=== PATIENT | female | born 1995 | race American Indian/Alaskan Native ===

== ENCOUNTER 2018-09-02 20:15 | Outpatient (CLI) | payer MEDICAID ==
[2018-09-02] MEDS ORDERED: LACTATED RINGERS 500 ML IV ONE (21:51)
[2018-09-02] MEDS ORDERED: LACTATED RINGERS 1,000 ML IV SCH (22:00)
--- NOTE | 2018-09-03 04:39 | Ultrasound Report ---
PROCEDURE: US OB BPP WO NON-STRESS HISTORY: well-being FINDINGS: Biophysical profile was performed. Biophysical profile was 8 of 8. cardiac activity is present at 129 bpm. IMPRESSION: Biophysical profile 8 of 8 This document is electronically signed by Mohamud Ramirez MD., September 03 2018 04:37:14 AM ET
--- NOTE | 2018-09-03 04:43 | Ultrasound Report ---
PROCEDURE: US OB LIMITED HISTORY: R/O Abruption FINDINGS: Real-time ultrasound of the pelvis was performed and demonstrates a single intrauterine ges tation in cephalic lie. There is an anterior grade 1 placenta. There is no evidence of placental abruption. cardiac activity is present at 129 bpm. IMPRESSION: No evidence of placental abruption This document is electronically signed by Mohamud Ramirez MD., September 03 2018 04:41:32 AM ET
== END 2018-09-03 03:06 | disposition home or self-care (01) ==
LOC: TRG 20:15
PROVIDERS: ATTEND Obstetrics & Gynecology
DX: O46.93 Antepartum hemorrhage, unspecified, third trimester (principal); O36.8130 Decreased fetal movements, third trimester, not applicable or unspecified; Z87.891 Personal history of nicotine dependence; Z3A.30 30 weeks gestation of pregnancy
CPT/HCPCS: 59025; 76815; 76819; 96360; 96361; J7120

== ENCOUNTER 2018-10-10 00:02 | Outpatient (CLI) | payer MEDICAID ==
[2018-10-10 00:16] VITALS: BP 133/78
[2018-10-10] MEDS ORDERED: LACTATED RINGERS 500 ML IV ONE (00:30)
== END 2018-10-10 01:25 | disposition home or self-care (01) ==
LOC: TRG 00:02
PROVIDERS: ATTEND Obstetrics & Gynecology
DX: O47.03 False labor before 37 completed weeks of gestation, third trimester (principal); Z3A.35 35 weeks gestation of pregnancy
CPT/HCPCS: 59025

== ENCOUNTER 2018-11-01 11:06 | Outpatient (CLI) | payer MEDICAID ==
[2018-11-01 11:32] VITALS: BP 114/66
== END 2018-11-01 12:00 | disposition home or self-care (01) ==
LOC: TRG 11:06
PROVIDERS: ATTEND Obstetrics & Gynecology
DX: O47.1 False labor at or after 37 completed weeks of gestation (principal); Z3A.39 39 weeks gestation of pregnancy
CPT/HCPCS: 59025

== ENCOUNTER 2018-11-01 21:45 | Inpatient (IN) | payer MEDICAID ==
[2018-11-01] MEDS ORDERED: TYLENOL #3 PO PRN (21:59)
[2018-11-01] MEDS ORDERED: BRETHINE SUB-Q PRN (22:55)
[2018-11-01] MEDS ORDERED: STADOL IV PRN (22:55)
[2018-11-01] MEDS ORDERED: NUBAIN IV PRN (22:55)
[2018-11-01] MEDS ORDERED: MINERAL OIL PO PRN (22:55)
[2018-11-01] MEDS ORDERED: BRETHINE IVP PRN (22:55)
[2018-11-01] MEDS ORDERED: XYLOCAINE 2% INFILTRATI ONE (22:55)
[2018-11-01] MEDS ORDERED: NARCAN 0.4 MG/1 ML IV PRN (22:55)
[2018-11-01] MEDS ORDERED: PHENERGAN PO PRN (22:55)
[2018-11-01] MEDS ORDERED: METHERGINE IM PRN (22:59)
[2018-11-01] MEDS ORDERED: CYTOTEC PR PRN (22:59)
[2018-11-01] MEDS ORDERED: PITOCin/NS 20 UNIT/1000ML DRIP 20 UNITS/1,000 ML BAG IV SCH (23:00)
[2018-11-01] MEDS ORDERED: PITOCin/NS 30 UNIT/500ML 30 UNITS/500 ML BAG IV SCH (23:00)
--- NOTE | 2018-11-01 23:06 | History and Physical Report ---
History of Present Illness Date of examination: 11/01/18 Date of admission: 11/01/18 22:39 Chief complaint: Contractions History of present illness: Pt is a 23 yo at 39.1 wks EGA who presents with contractions q2-3 minutes. She reports occasional leaking fluid since intercourse this morning. She reports positive movement and denies rashel vaginal bleeding. She has received care with [facility]. Her has been complicated by UTI, treated. She is GBS negative. Past History Past Medical History: no pertinent history Past Surgical History: no surgical history [employer] ATTENDANT History: abnormal PAP smear Social history: no significant social history - Obstetrical History Expected Date of Delivery: 11/07/18 Actual Gestation: 39 Week(s) 1 Day(s) : 3 Para: 0 Hx # Term Pregnancies: 0 Induced : 2 Number of Living Children: 0 Medications and Allergies Allergies Allergy/AdvReac Type Severity Reaction Status Date / Time No Known Allergies Allergy Verified 11/01/18 11:08 Home Medications Medication Instructions Recorded Confirmed Last Taken Type No Known Home Medications [No 02/23/14 11/01/18 Unknown History Reported Home Medications] Active Meds: Active Medications Acetaminophen/Codeine Phosphate (Tylenol #3) 1 tab PO Q4H PRN PRN Reason: Pain, Moderate (4-6) Last Admin: 11/01/18 22:09 Dose: 1 tab Documented by: Butorphanol Tartrate (Stadol) 2 mg IV Q2H PRN PRN Reason: Pain , Severe (7-10) Ephedrine Sulfate (Ephedrine Sulfate) 10 mg IV Q2M PRN PRN Reason: Hypotension Fentanyl (Sublimaze) 100 mcg IV Q2H PRN PRN Reason: Labor Pain Oxytocin/Sodium Chloride (Pitocin/Ns 20 Unit/1000ml Drip) 20 units in 1,000 mls @ 125 mls/hr IV DIRECT MARIANNE Oxytocin/Sodium Chloride (Pitocin/Ns 30 Unit/500ml) 30 units in 500 mls @ 1 mls/hr IV TITR MARIANNE; Protocol Lactated Ringer's (Lactated Ringers) 1,000 mls @ 125 mls/hr IV DIRECT MARIANNE Lidocaine (Xylocaine 2%) 20 ml INFILTRATI ONCE ONE Stop: 11/01/18 22:56 Methylergonovine Maleate (Methergine) 0.2 mg IM ONCE PRN PRN Reason: Uterine Bleeding Mineral Oil (Mineral Oil) 30 ml PO QHS PRN PRN Reason: Constipation Misoprostol (Cytotec) 800 mcg CO ONCE PRN PRN Reason: Uterine Bleeding Nalbuphine HCl (Nubain) 10 mg IV Q2H PRN PRN Reason: Pain, Moderate (4-6) Naloxone HCl (Narcan 0.4 Mg/1 Ml) 0.1 mg IV Q2MIN PRN PRN Reason: Res Rate </= 8 or 02 SAT < 92% Promethazine HCl (Phenergan) 25 mg PO Q6H PRN PRN Reason: Nausea And Vomiting Terbutaline Sulfate (Brethine) 0.25 mg SUB-Q ONCE PRN PRN Reason: Hyperstimulation/Hypertonicity Terbutaline Sulfate (Brethine) 0.25 mg IVP ONCE PRN PRN Reason: Hyperstimulation/Hypertonicity Review of Systems All systems: negative Cardiovascular: no chest pain Respiratory: no shortness of breath Genitourinary: vaginal discharge, contractions - Physical Exam Breasts: Positive: deferred Cardiovascular: Regular rate, Normal S1, Normal S2, No murmurs Lungs: Positive: Clear to auscultation, Normal air movement Abdomen: Positive: soft Genitourinary (Female): Positive: normal external genitalia Vagina: Positive: normal moisture Uterus: Positive: enlarged (gravid), normal contour, other (Nitrazine negative, no fluid noted in vagina or bed) Anus/Rectum: Positive: normal perianal skin Extremities: Positive: normal - Obstetrical FHR: auscultation normal, category 1 Uterine Contraction Monitor Mode: External Cervical Dilatation: 5 Cervical Effacement Percentage: 80 station: -2 Uterine Contraction Frequency (min): 1-4 Uterine Contraction Duration: 60 seconds Uterine Contraction Pattern: Regular Uterine Tone Measurement Phase: Contraction Uterine Contraction Intensity: Strong/Firm Results All other labs normal. Assessment and Plan 23 yo at 39.1 wks EGA in active labor GBS negative, membranes intact Admit to L&D Pain relief as requested Expectant management, anticipate
[2018-11-01] MEDS: LACTATED RINGERS 1,000 ML IV SCH (23:22)
[2018-11-01] MEDS: SUBLIMAZE IV PRN (23:22)
[2018-11-01 23:39] LABS: Hematocrit 34.2 % (30.3-42.9); Hemoglobin 11.5 gm/dl (10.1-14.3); Mean Corpuscular HGB Conc 34 % (30-34); Mean Corpuscular Volume 82 fl (79-97); Platelet Count 249 K/mm3 (140-440); Red Blood Count 4.17 M/mm3 (3.65-5.03)
[2018-11-02] MEDS: SUBLIMAZE IV PRN (01:23)
--- NOTE | 2018-11-02 02:01 | Progress Note ---
Assessment and Plan 23 yo at 39.2 wks EGA in active labor GBS negative, membranes intact Initiate epidural OP presentation, encourage frequent position changes Expectant management, anticipate Subjective - Subjective Date of service: 11/02/18 Principal diagnosis: Active labor Interval history: Pt is sitting up in bed, continues to have regular contractions. She is more uncomfortable and requests an epidural. Patient reports: contractions, no loss of fluid Objective - Vital Signs Vital Signs: Vital Signs - 12hr 11/02/18 11/02/18 11/02/18 00:12 01:34 01:39 Pulse Rate 111 H 85 85 Blood Pressure 110/57 O2 Sat by Pulse 97 97 Oximetry 11/02/18 11/02/18 01:44 01:48 Pulse Rate 96 H 92 H Blood Pressure O2 Sat by Pulse 98 97 Oximetry - Exam FHR: category 1 Uterine Contraction Monitor Mode: External Cervical Dilatation: 5 Cervical Effacement Percentage: 80 Uterine Contraction Frequency (min): 1-3 Uterine Contraction Duration: 60 sec Uterine Contraction Pattern: Regular (some coupling noted) - Labs Labs: Laboratory Results - last 24 hr 11/01/18 11/01/18 22:51 22:51 WBC 9.3 RBC 4.17 Hgb 11.5 Hct 34.2 MCV 82 MCH 28 MCHC 34 RDW 15.0 Plt Count 249 Blood Type O POSITIVE Antibody Screen Negative
[2018-11-02] MEDS ORDERED: NARCAN 2 MG/2 ML IV PRN (02:33)
--- NOTE | 2018-11-02 02:35 | Anesthesia Consultation ---
Anesthesia Consult and Med Hx Date of service: 11/02/18 - Airway Anesthetic Teeth Evaluation: Good ROM Head & Neck: Adequate Mental/Hyoid Distance: Adequate Mallampati Class: Class II Intubation Access Assessment: Probably Good - Pulmonary Exam CTA: Yes - Cardiac Exam Cardiac Exam: RRR - Pre-Operative Health Status ASA Pre-Surgery Classification: ASA2 Proposed Anesthetic Plan: Epidural - Pulmonary Hx Smoking: No Hx Asthma: No Hx Respiratory Symptoms: No SOB: No COPD: No Home Oxygen Therapy: No Hx Pneumonia: No Hx Sleep Apnea: No - Cardiovascular System Hx Hypertension: No Hx Coronary Artery Disease: No Hx Heart Attack/AMI: No Hx Angina: No Hx Percutaneous Transluminal Coronary Angioplasty (PTCA): No Hx Cardia Arrhythmia: No Hx Pacemaker: No Hx Internal Defibrillator: No Hx Valvular Heart Disease: No Hx Heart Murmur: No Hx Peripheral Vascular Disease: No - Central Nervous System Hx Neuromuscular Disorder: No Hx Seizures: No CVA: No Hx Back Pain: No Hx Psychiatric Problems: No - Gastrointestinal Hx Ulcer: No Hx Gastroesophageal Reflux Disease: Yes - Endocrine Hx Renal Disease: No Hx End Stage Renal Disease: No Hx Cirrhosis: No Hx Liver Disease: No Hx Insulin Dependent Diabetes: No Hx Non-Insulin Dependent Diabetes: No Hx Thyroid Disease: No Hx Hypothyroidism: No Hx Hyperthyroidism: No - Hematic Hx Anemia: No Hx Sickle Cell Disease: No - Other Systems Hx Alcohol Use: No Hx Substance Use: No Hx Cancer: No Hx Obesity: Yes (BMI 37)
[2018-11-02] MEDS ORDERED: fentaNYL-BUPIV 2 MCG/ML-0.125% 200 MCG/100 ML BAG EPIDURAL SCH (03:00)
[2018-11-02] MEDS: LACTATED RINGERS 1,000 ML IV SCH ×2 (03:11→06:19)
--- NOTE | 2018-11-02 05:43 | Progress Note ---
Assessment and Plan 23 yo at 39.2 wks EGA in active labor GBS negative, membranes intact OP presentation, encourage frequent position changes Expectant management, anticipate Subjective - Subjective Date of service: 11/02/18 Principal diagnosis: Active labor Interval history: Pt continues to have regular contractions. She is comfortable with her epidural. Patient reports: loss of fluid, no new complaints Objective - Vital Signs Vital Signs: Vital Signs - 12hr 11/02/18 11/02/18 11/02/18 00:12 01:34 01:39 Pulse Rate 111 H 85 85 Respiratory Rate Blood Pressure 110/57 O2 Sat by Pulse 97 97 Oximetry 11/02/18 11/02/18 11/02/18 01:44 01:48 01:54 Pulse Rate 96 H 92 H 104 H Respiratory Rate Blood Pressure O2 Sat by Pulse 98 97 97 Oximetry 11/02/18 11/02/18 11/02/18 01:59 02:01 02:04 Pulse Rate 94 H 115 H 100 H Respiratory Rate Blood Pressure O2 Sat by Pulse 98 93 98 Oximetry 11/02/18 11/02/18 11/02/18 02:09 02:14 02:18 Pulse Rate 95 H 118 H 95 H Respiratory Rate Blood Pressure 135/82 O2 Sat by Pulse 97 99 Oximetry 11/02/18 11/02/18 11/02/18 02:19 02:20 02:22 Pulse Rate 98 H 95 H 92 H Respiratory Rate Blood Pressure 137/80 141/82 O2 Sat by Pulse 98 Oximetry 11/02/18 11/02/18 11/02/18 02:24 02:28 02:29 Pulse Rate 85 86 81 Respiratory Rate Blood Pressure 165/69 116/59 O2 Sat by Pulse 97 99 Oximetry 11/02/18 11/02/18 11/02/18 02:34 02:35 02:39 Pulse Rate 88 89 76 Respiratory Rate Blood Pressure 118/67 O2 Sat by Pulse 100 100 Oximetry 11/02/18 11/02/18 11/02/18 02:44 02:49 02:51 Pulse Rate 91 H 80 83 Respiratory Rate Blood Pressure 138/81 O2 Sat by Pulse 90 100 Oximetry 11/02/18 11/02/18 11/02/18 02:53 02:59 03:04 Pulse Rate 77 78 80 Respiratory Rate Blood Pressure O2 Sat by Pulse 100 100 100 Oximetry 11/02/18 11/02/18 11/02/18 03:07 03:09 03:14 Pulse Rate 90 76 80 Respiratory Rate Blood Pressure 140/80 O2 Sat by Pulse 100 100 Oximetry 11/02/18 11/02/18 11/02/18 03:19 03:23 03:24 Pulse Rate 85 85 83 Respiratory Rate Blood Pressure 132/84 O2 Sat by Pulse 100 100 Oximetry 11/02/18 11/02/18 11/02/18 03:27 03:28 03:34 Pulse Rate 83 86 Respiratory 15 Rate Blood Pressure 140/80 O2 Sat by Pulse 100 100 Oximetry 11/02/18 11/02/18 11/02/18 03:37 03:39 03:43 Pulse Rate 90 84 87 Respiratory Rate Blood Pressure 131/75 O2 Sat by Pulse 100 100 Oximetry 11/02/18 11/02/18 11/02/18 03:49 03:50 03:54 Pulse Rate 85 91 H 86 Respiratory Rate Blood Pressure 126/74 O2 Sat by Pulse 99 99 Oximetry 11/02/18 11/02/18 11/02/18 03:58 04:03 04:05 Pulse Rate 90 85 83 Respiratory Rate Blood Pressure 124/71 O2 Sat by Pulse 99 99 Oximetry 11/02/18 11/02/18 11/02/18 04:09 04:14 04:18 Pulse Rate 84 90 97 H Respiratory Rate Blood Pressure O2 Sat by Pulse 98 100 100 Oximetry 11/02/18 11/02/18 11/02/18 04:21 04:23 04:28 Pulse Rate 93 H 97 H 89 Respiratory Rate Blood Pressure 122/71 O2 Sat by Pulse 100 100 Oximetry 11/02/18 11/02/18 11/02/18 04:33 04:37 04:39 Pulse Rate 90 86 89 Respiratory Rate Blood Pressure 123/68 O2 Sat by Pulse 100 100 Oximetry 11/02/18 11/02/18 11/02/18 04:43 04:48 04:50 Pulse Rate 94 H 91 H 91 H Respiratory Rate Blood Pressure 117/67 O2 Sat by Pulse 100 100 Oximetry 11/02/18 11/02/18 11/02/18 04:53 04:58 05:03 Pulse Rate 98 H 94 H 93 H Respiratory Rate Blood Pressure O2 Sat by Pulse 100 100 100 Oximetry 11/02/18 11/02/18 11/02/18 05:07 05:08 05:13 Pulse Rate 96 H 95 H 96 H Respiratory Rate Blood Pressure 115/66 O2 Sat by Pulse 99 100 Oximetry 11/02/18 11/02/18 11/02/18 05:18 05:20 05:23 Pulse Rate 102 H 96 H 102 H Respiratory Rate Blood Pressure 116/67 O2 Sat by Pulse 100 99 Oximetry 11/02/18 11/02/18 11/02/18 05:28 05:33 05:37 Pulse Rate 98 H 110 H 108 H Respiratory Rate Blood Pressure 137/88 O2 Sat by Pulse 99 99 Oximetry - Exam FHR: category 1 Uterine Contraction Monitor Mode: External Cervical Dilatation: 9 Cervical Effacement Percentage: 100 station: -1, BBOW Uterine Contraction Frequency (min): 1-3 Uterine Contraction Duration: 60 Extremities: normal - Labs Labs: Laboratory Results - last 24 hr 11/01/18 11/01/18 22:51 22:51 WBC 9.3 RBC 4.17 Hgb 11.5 Hct 34.2 MCV 82 MCH 28 MCHC 34 RDW 15.0 Plt Count 249 Blood Type O POSITIVE Antibody Screen Negative
--- NOTE | 2018-11-02 06:21 | Progress Note ---
Assessment and Plan 23 yo at 39.2 wks EGA in active labor GBS negative, membranes intact Expectant management, anticipate Subjective - Subjective Date of service: 11/02/18 Principal diagnosis: Active labor Interval history: Pt continues to have regular contractions. She is comfortable with her epidural, feeling occasional rectal pressure. Patient reports: no loss of fluid Objective - Vital Signs Vital Signs: Vital Signs - 12hr 11/02/18 11/02/18 11/02/18 00:12 01:34 01:39 Temperature Pulse Rate 111 H 85 85 Respiratory Rate Blood Pressure 110/57 Blood Pressure [Left] O2 Sat by Pulse 97 97 Oximetry 11/02/18 11/02/18 11/02/18 01:44 01:48 01:54 Temperature Pulse Rate 96 H 92 H 104 H Respiratory Rate Blood Pressure Blood Pressure [Left] O2 Sat by Pulse 98 97 97 Oximetry 11/02/18 11/02/18 11/02/18 01:59 02:01 02:04 Temperature Pulse Rate 94 H 115 H 100 H Respiratory Rate Blood Pressure Blood Pressure [Left] O2 Sat by Pulse 98 93 98 Oximetry 11/02/18 11/02/18 11/02/18 02:09 02:14 02:18 Temperature Pulse Rate 95 H 118 H 95 H Respiratory Rate Blood Pressure 135/82 Blood Pressure [Left] O2 Sat by Pulse 97 99 Oximetry 11/02/18 11/02/18 11/02/18 02:19 02:20 02:22 Temperature Pulse Rate 98 H 95 H 92 H Respiratory Rate Blood Pressure 137/80 141/82 Blood Pressure [Left] O2 Sat by Pulse 98 Oximetry 11/02/18 11/02/18 11/02/18 02:24 02:28 02:29 Temperature Pulse Rate 85 86 81 Respiratory Rate Blood Pressure 165/69 116/59 Blood Pressure [Left] O2 Sat by Pulse 97 99 Oximetry 11/02/18 11/02/18 11/02/18 02:34 02:35 02:39 Temperature Pulse Rate 88 89 76 Respiratory Rate Blood Pressure 118/67 Blood Pressure [Left] O2 Sat by Pulse 100 100 Oximetry 11/02/18 11/02/18 11/02/18 02:44 02:49 02:51 Temperature Pulse Rate 91 H 80 83 Respiratory Rate Blood Pressure 138/81 Blood Pressure [Left] O2 Sat by Pulse 90 100 Oximetry 11/02/18 11/02/18 11/02/18 02:53 02:59 03:04 Temperature Pulse Rate 77 78 80 Respiratory Rate Blood Pressure Blood Pressure [Left] O2 Sat by Pulse 100 100 100 Oximetry 11/02/18 11/02/18 11/02/18 03:07 03:09 03:14 Temperature Pulse Rate 90 76 80 Respiratory Rate Blood Pressure 140/80 Blood Pressure [Left] O2 Sat by Pulse 100 100 Oximetry 11/02/18 11/02/18 11/02/18 03:19 03:23 03:24 Temperature Pulse Rate 85 85 83 Respiratory Rate Blood Pressure 132/84 Blood Pressure [Left] O2 Sat by Pulse 100 100 Oximetry 11/02/18 11/02/18 11/02/18 03:27 03:28 03:34 Temperature Pulse Rate 83 86 Respiratory 15 Rate Blood Pressure 140/80 Blood Pressure [Left] O2 Sat by Pulse 100 100 Oximetry 11/02/18 11/02/18 11/02/18 03:37 03:39 03:43 Temperature Pulse Rate 90 84 87 Respiratory Rate Blood Pressure 131/75 Blood Pressure [Left] O2 Sat by Pulse 100 100 Oximetry 11/02/18 11/02/18 11/02/18 03:49 03:50 03:54 Temperature Pulse Rate 85 91 H 86 Respiratory Rate Blood Pressure 126/74 Blood Pressure [Left] O2 Sat by Pulse 99 99 Oximetry 11/02/18 11/02/18 11/02/18 03:58 04:03 04:05 Temperature Pulse Rate 90 85 83 Respiratory Rate Blood Pressure 124/71 Blood Pressure [Left] O2 Sat by Pulse 99 99 Oximetry 11/02/18 11/02/18 11/02/18 04:09 04:14 04:18 Temperature Pulse Rate 84 90 97 H Respiratory Rate Blood Pressure Blood Pressure [Left] O2 Sat by Pulse 98 100 100 Oximetry 11/02/18 11/02/18 11/02/18 04:21 04:23 04:28 Temperature Pulse Rate 93 H 97 H 89 Respiratory Rate Blood Pressure 122/71 Blood Pressure [Left] O2 Sat by Pulse 100 100 Oximetry 11/02/18 11/02/18 11/02/18 04:33 04:37 04:39 Temperature Pulse Rate 90 86 89 Respiratory Rate Blood Pressure 123/68 Blood Pressure [Left] O2 Sat by Pulse 100 100 Oximetry 11/02/18 11/02/18 11/02/18 04:43 04:48 04:50 Temperature Pulse Rate 94 H 91 H 91 H Respiratory Rate Blood Pressure 117/67 Blood Pressure [Left] O2 Sat by Pulse 100 100 Oximetry 11/02/18 11/02/18 11/02/18 04:53 04:58 05:03 Temperature Pulse Rate 98 H 94 H 93 H Respiratory Rate Blood Pressure Blood Pressure [Left] O2 Sat by Pulse 100 100 100 Oximetry 11/02/18 11/02/18 11/02/18 05:07 05:08 05:11 Temperature Pulse Rate 96 H 95 H Respiratory 16 Rate Blood Pressure 115/66 128/67 Blood Pressure [Left] O2 Sat by Pulse 99 Oximetry 11/02/18 11/02/18 11/02/18 05:13 05:18 05:20 Temperature Pulse Rate 96 H 102 H 96 H Respiratory Rate Blood Pressure 116/67 Blood Pressure [Left] O2 Sat by Pulse 100 100 Oximetry 11/02/18 11/02/18 11/02/18 05:23 05:28 05:33 Temperature Pulse Rate 102 H 98 H 110 H Respiratory Rate Blood Pressure Blood Pressure [Left] O2 Sat by Pulse 99 99 99 Oximetry 11/02/18 11/02/18 11/02/18 05:37 05:38 05:39 Temperature Pulse Rate 108 H 101 H 100 H Respiratory Rate Blood Pressure 137/88 128/67 Blood Pressure [Left] O2 Sat by Pulse 100 Oximetry 11/02/18 11/02/18 11/02/18 05:43 05:48 05:51 Temperature Pulse Rate 102 H 102 H 104 H Respiratory Rate Blood Pressure 119/64 Blood Pressure [Left] O2 Sat by Pulse 100 100 Oximetry 11/02/18 11/02/18 11/02/18 05:53 05:56 05:58 Temperature 97.7 F Pulse Rate 106 H 106 H 113 H Respiratory 16 Rate Blood Pressure Blood Pressure 119/64 [Left] O2 Sat by Pulse 100 100 100 Oximetry 11/02/18 11/02/18 11/02/18 06:03 06:07 06:08 Temperature Pulse Rate 107 H 108 H 110 H Respiratory Rate Blood Pressure 120/71 Blood Pressure [Left] O2 Sat by Pulse 100 99 Oximetry 11/02/18 11/02/18 06:13 06:18 Temperature Pulse Rate 104 H 104 H Respiratory Rate Blood Pressure Blood Pressure [Left] O2 Sat by Pulse 99 100 Oximetry - Exam FHR: category 1 Uterine Contraction Monitor Mode: External Cervical Dilatation: 9.5 Cervical Effacement Percentage: 100 station: 0 Uterine Contraction Frequency (min): 2-4 Uterine Contraction Duration: 60 seconds Uterine Contraction Pattern: Regular - Labs Labs: Laboratory Results - last 24 hr 11/01/18 11/01/18 22:51 22:51 WBC 9.3 RBC 4.17 Hgb 11.5 Hct 34.2 MCV 82 MCH 28 MCHC 34 RDW 15.0 Plt Count 249 Blood Type O POSITIVE Antibody Screen Negative
[2018-11-02] MEDS ORDERED: XYLOCAINE 2% INFILTRATI ONE (07:14)
--- NOTE | 2018-11-02 08:41 | Procedure Note ---
OB Delivery Note - Delivery Date of Delivery: 11/02/18 Surgeon: MAISHA MICHAEL (CN) Estimated blood loss: 200cc - Vaginal Delivery presentation: vertex Delivery position: OA Intrapartum events: none Delivery induction: none Delivery augmentation: rupture of membranes Delivery monitor: external FHT, external uterine Route of delivery: Delivery placenta: spontaneous, other (accessory lobe) Delivery cord: 3 umbilical vessels Episiotomy: none Delivery laceration: none Anesthesia: epidural Delivery comments: Excellent maternal effort resulted in of viable male infant at 0800. Head restituted LOT after maternal leg extension and flexion. Shoulders followed with gentle guidance. to maternal abdomen, vigorous. Cord clamped and cut upon cessation of cord pulsation. Placenta delivered with maternal pushing at 0819, trailing membranes with vessel. EBL 200, no lacerations noted. - Infant A at 1 minute: 8 at 5 minutes: 9 Gender: Male
[2018-11-02] MEDS ORDERED: LANSINOH TP PRN (09:00)
[2018-11-02] MEDS ORDERED: PHENERGAN PR PRN (09:00)
[2018-11-02] MEDS ORDERED: TUCKS PAD TP PRN (09:00)
[2018-11-02] MEDS ORDERED: BENADRYL PO PRN (09:00)
[2018-11-02] MEDS ORDERED: PHENERGAN PO PRN (09:00)
[2018-11-02] MEDS ORDERED: SODIUM CHLORIDE FLUSH SYRINGE 10 ML IV PRN (09:00)
[2018-11-02] MEDS ORDERED: ZOFRAN IV PRN (09:30)
[2018-11-02] MEDS ORDERED: DULCOLAX PR PRN (10:00)
[2018-11-02] MEDS: IBUPROFEN PO SCH ×2 (11:27→17:55)
[2018-11-02] MEDS: FEOSOL PO SCH ×2 (11:28→21:55)
[2018-11-02] MEDS: COLACE PO SCH ×2 (11:28→21:55)
[2018-11-02] MEDS: TYLENOL PO PRN (15:28)
[2018-11-02 20:24] LABS: Hemoglobin 9.5 gm/dl (10.1-14.3)
[2018-11-02] MEDS ORDERED: MILK OF MAGNESIA PO PRN (22:00)
[2018-11-03] MEDS: IBUPROFEN PO SCH ×4 (00:14→18:20)
--- NOTE | 2018-11-03 08:23 | Progress Note ---
Assessment and Plan A/P PPD 1 s/p routine PP orders anemia-on iron Subjective - Subjective Date of service: 11/03/18 Principal diagnosis: s/p Patient reports: appetite normal, voiding normally, pain well controlled, flatus, ambulating normally : doing well Objective - Vital Signs Latest vital signs: Vital Signs Temp Pulse Resp BP BP Pulse Ox 11/03/18 00:15 98.4 F 100 H 20 122/61 96 11/02/18 17:40 98.8 F 96 H 18 126/76 11/02/18 09:45 98.6 F 115 H 18 129/72 98 11/02/18 09:24 115 H 139/63 11/02/18 08:24 126 H 146/62 Intake and Output 11/02/18 11/03/18 11/03/18 23:59 07:59 15:59 Intake Total 480 Balance 480 Intake: Oral 480 Other: Total, Intake Amount 480 - Exam Breasts: Present: normal Cardiovascular: Present: Regular rate, Normal S1 Lungs: Present: Clear to auscultation, Normal air movement Abdomen: Present: normal appearance, soft, normal bowel sounds. Absent: distention, tenderness, guarding Uterus: Present: normal, firm, fundal height below umbilicus. Absent: bogginess, tenderness Extremities: Present: normal Deep Tendon Reflex Grade: Normal +2 - Labs Labs: Abnormal lab results 11/02/18 Range/Units 20:06 Hgb 9.5 L (10.1-14.3) gm/dl Hct 29.0 L (30.3-42.9) %
[2018-11-03] MEDS: COLACE PO SCH ×2 (10:58→21:55)
[2018-11-03] MEDS: FEOSOL PO SCH ×2 (10:58→21:55)
[2018-11-03] MEDS: TYLENOL PO PRN (16:21)
[2018-11-04] MEDS: IBUPROFEN PO SCH ×3 (00:47→16:16)
--- NOTE | 2018-11-04 07:57 | Progress Note ---
Assessment and Plan PPD2 s/p Provided breast feeding education Anemia- taking iron Discharge to home today Subjective - Subjective Date of service: 11/04/18 Principal diagnosis: s/p Interval history: Pt is PPD2 s/p of viable male infant. Patient reports: appetite normal, voiding normally, pain well controlled, ambulating normally Kelliher: doing well, nursing well, bottle feeding (supplementing) Objective - Vital Signs Latest vital signs: Vital Signs Temp Pulse Resp BP Pulse Ox 11/03/18 23:51 98.3 F 92 H 20 137/72 96 11/03/18 16:40 98.5 F 103 H 18 128/68 98 11/03/18 16:21 20 11/03/18 08:15 98.6 F 87 18 115/76 99 Intake and Output 11/03/18 11/03/18 11/04/18 15:59 23:59 07:59 Intake Total 1080 600 240 Balance 1080 600 240 Intake: Oral 360 240 240 Intake, Free Water 720 360 Other: Total, Intake Amount 360 240 240 # Voids Indwelling Catheter 1 2 - Exam Breasts: Present: normal Lungs: Present: Normal air movement Abdomen: Present: normal appearance, soft Uterus: Present: normal, firm, fundal height below umbilicus Extremities: Present: normal
--- NOTE | 2018-11-04 07:58 | Discharge Summary ---
Providers - Providers Date of Admission: 11/01/18 22:39 Date of discharge: 11/04/18 Attending physician: EMILIA KAUFMAN Primary care physician: EMILIA KAUFMAN Hospitalization Reason for admission: active labor, IUP at term Delivery: Episiotomy: none Laceration: none Other procedures: none complications: none Discharge diagnosis: IUP at term delivered [place] baby: male Hospital course: Pt presented to triage in active labor. She progressed to of viable male . EBL 200mL, no lacerations, acute anemia. Condition at discharge: Good Disposition: DC-01 TO HOME OR SELFCARE Plan - Discharge Medications Prescriptions: Ferrous Sulfate [Ferrous Sulfate 324 MG] 324 mg PO BID #60 tablet. Ibuprofen [Motrin] 600 mg PO Q6H PRN #90 tablet PRN Reason: Pain - Provider Discharge Summary Activity: routine, no sex for 6 weeks, no heavy lifting 4 weeks, no strenuous exercise Diet: routine Instructions: routine Additional instructions: [] Smoking cessation referral if applicable(refer to patient education folder for contact #) [] Refer to [facility] Book[facility] Call your doctor immediately for: * Fever > 100.5 * Heavy vaginal bleeding ( >1 pad per hour) * Severe persistent headache * Shortness of breath * Reddened, hot, painful area to leg or breast * Drainage or odor from incision. * Keep incision clean and dry at all times and follow doctor's instructions regarding bathing/showering Call to schedule appointment with [facility] in 6 weeks. - Follow up plan Follow up: EMILIA KAUFMAN MD [Primary Care Provider] - 6 Weeks
[2018-11-04] MEDS: FEOSOL PO SCH (08:38)
[2018-11-04] MEDS: COLACE PO SCH (08:38)
[2018-11-04 17:36] VITALS: BP 124/73
== END 2018-11-04 17:45 | disposition home or self-care (01) | DRG 775 ==
LOC: TRG 21:45 → OBSVTOIN 22:39 → LD 22:39 → OB 11-02 10:25
PROVIDERS: ADMIT Obstetrics & Gynecology; ATTEND Obstetrics & Gynecology
PROC: 10E0XZZ Delivery of Products of Conception, External Approach (ICD-10-PCS; principal; 2018-11-02)
PROC: 3E0R3BZ Introduction of Anesthetic Agent into Spinal Canal, Percutaneous Approach (ICD-10-PCS; 2018-11-02)
PROC: 00HU33Z Insertion of Infusion Device into Spinal Canal, Percutaneous Approach (ICD-10-PCS; 2018-11-02)
DX: O99.62 Diseases of the digestive system complicating childbirth (principal); O99.214 Obesity complicating childbirth; E66.9 Obesity, unspecified; O99.02 Anemia complicating childbirth; K21.9 Gastro-esophageal reflux disease without esophagitis; D64.9 Anemia, unspecified; Z3A.39 39 weeks gestation of pregnancy; Z37.0 Single live birth
CPT/HCPCS: 36415; 85014; 85018; 85027; 86592; 86850; 86900; 86901; 88307; G0378; A6250; J2590; J3010; J7120